=== PATIENT | female | born 1990 | race African-American/Black ===

== ENCOUNTER 2021-04-16 22:36 | Emergency (ER) | payer MEDICAID ==
[~2021-04-16] VITALS: Ht 160 cm; Wt 77.0 kg
[2021-04-16] MEDS ORDERED: MORPHINE SULFATE 4 MG/ML CPJ (NOT FOR IM USE) IV ONE (23:15)
[2021-04-17] MEDS ORDERED: HYDR-4346 MT (00:22)
[2021-04-17] MEDS ORDERED: IBUP-2029 MT (00:22)
[2021-04-17] MEDS ORDERED: MORPHINE SULFATE 4 MG/ML CPJ (NOT FOR IM USE) IV ONE (00:30)
[2021-04-17 00:55] VITALS: BP 116/82
== END 2021-04-17 01:11 | disposition home or self-care (01) ==
LOC: ER 22:36
DX: S82.401A Unspecified fracture of shaft of right fibula, initial encounter for closed fracture (principal); J45.909 Unspecified asthma, uncomplicated; Z88.0 Allergy status to penicillin; W18.30XA Fall on same level, unspecified, initial encounter; Y93.89 Activity, other specified; Y92.89 Other specified places as the place of occurrence of the external cause; Y99.8 Other external cause status
CPT/HCPCS: 29515; 73590; 73610; 96374; 96376; 99284; J2270